=== PATIENT | female | born 1945 ===

== ENCOUNTER → 2016-08-30 | Day surgery (SDC) | payer OTHER ==
[~2016-08-30] MED LIST: BUPROPION XL300 M1 PO; DILTIA XT120 MG PO; HYDROCHLOROTHIA25 MG PO; LISINOPRIL10 MG PO; LUMIGAN2.5 ML OD; MOBIC PO; MULTI VITAMIN1 EACH PO; OCUVITE EYE +1 EACH PO; OMEPRAZOLE20 M1 PO; PRAVACHOL20 MG PO; SYNTHROID25 MCG PO; ZOLPIDEM TARTRAT5 MG PO; ZYRTEC10 M1 PO
--- NOTE | ~2016-08-30 | EKG ---
PATIENT: ROSELIA HERNANDEZ UNIT #: [id number] Ventricular Rate: 71 BPM Atrial Rate: 71 BPM P-R Interval: 212 ms QRS Duration: 76 ms Q-T Interval: 400 ms QTC Calculation(Bezet): 434 ms P [place]: 53 degrees Calculated R [place]: -3 degrees Calculated T [place]: 23 degrees Diagnosis Line: Sinus rhythm with sinus arrhythmia with 1st degree Diagnosis Line: A-V block Diagnosis Line: Otherwise normal ECG Diagnosis Line: No previous ECGs available Diagnosis Line: Confirmed by FAIZAN MENDEZ MD ([id number]) on Diagnosis Line: 08/30/2016 12:13:13 PM INTERPRETING MD: ROBIN
--- NOTE | ~2016-08-30 | OR ---
Unit #: [id number] #: [id number] Patient: ROSELIA HERNANDEZ [id number] [address] [address] [id number] O MR#: [id number] NAME: ROSELIA HERNANDEZ ROOM: Date of Procedure: 08/30/2016 Admission Date: 08/30/2016 Surgeon: Remi Bolanos M.D. : 1945 Attending Physician: Remi Bolanos M.D. Referring Physician: Remi Bolanos M.D. Primary Care Physician: Bimal Robertson M.D. OPERATIVE REPORT PREOPERATIVE DIAGNOSIS Bladder tumor, dome. POSTOPERATIVE DIAGNOSIS Bladder tumor, dome. PROCEDURES PERFORMED 1. Cystoscopy. 2. Bladder biopsy with fulguration. ANESTHESIA General. INDICATIONS FOR PROCEDURE Ms. Hernandez is a pleasant female with low-grade bladder cancer. She had 2 tumors on her dome on recent cystoscopy. The risks, benefits, alternatives including bleeding, infection, damage to adjacent structures, need for further surgery, bladder perforation, and all other risks were discussed with the patient. Informed consent was obtained. She wished to proceed. DESCRIPTION OF PROCEDURE The patient was taken to the operative suite and properly identified. After the application of satisfactory general anesthetic, the patient was placed in dorsal lithotomy position. Her genitalia were prepped and draped in usual sterile fashion. I introduced a rigid 22-[place] cystoscope. I performed panendoscopy. She had 2 papillary tumors along the dome. I switched to the rigid biopsy forceps. I completely removed each tumor and fulgurated the base. Hemostasis was excellent. Because these tumors were at the dome on a female, which typically have thin bladders, I elected to leave the catheter. I placed 20-[place] Álvarez catheter. Urine was clear at the end of the case. The patient tolerated the procedure well without complications. She was transported stable and extubated to PACU. PLAN We will have her follow up in about 4 to 5 days for Álvarez removal and pathology review. Dictated by... Remi Bolanos M.D. Unit #: [id number] #: [id number] Patient: ROSELIA HERNANDEZ MDP/modl TD: 08/30/2016 21:36 JOB #: [id number] OPERATIVE REPORT X Remi Bolanos MD PROCEDURE OPERATIVE NOTE
[2016-08-30 10:58] LABS: EOSINOPHIL# 0.2 X10e3 (0-0.7); HEMATOCRIT 35.9 % (35.0-45.0); HEMOGLOBIN 12.4 gm/dL (12.0-16.0); LYMPHOCYTE# 0.7 X10e3 (1.0-3.5); LYMPHOCYTE% 13.5 % (17.0-45.0); MEAN CELL VOLUME 93.9 FL (83-96); MEAN CORPUSCULAR HEMOGLOBIN 32.5 PG (28-34); MEAN CORPUSCULAR HGB CONC 34.6 g/dL (30-36); MEAN PLATELET VOLUME 7.9 FL (6.5-11.5); MONOCYTE# 0.7 X10e3 (0-1.0); NEUTROPHIL# 3.2 X10e3 (1.5-7.1); NEUTROPHIL% 66.5 % (40-75); PLATELET COUNT 322 X10e3 (140-420); RED BLOOD COUNT 3.82 X10e (3.90-5.30); RED CELL DISTRIBUTION WIDTH 12.1 % (11.0-15.5); WHITE BLOOD COUNT 4.8 X10e3 (4.0-10.5)
[2016-08-30 11:00] LABS: DIFF IND NO
[2016-08-30 11:26] LABS: CALCIUM SERUM 9.4 mg/dL (8.4-10.2); GLOM FILT RATE Estimated 58.3 mL/min (>60); POTASSIUM 4.1 mmol/L (3.5-5.1)
== END | disposition home or self-care (01) ==
LOC: CSUR 09:53
PROVIDERS: Urology
DX: C67.9 Malignant neoplasm of bladder, unspecified (principal); I10 Essential (primary) hypertension; E03.9 Hypothyroidism, unspecified; J43.9 Emphysema, unspecified; Z85.118 Personal history of other malignant neoplasm of bronchus and lung; Z87.891 Personal history of nicotine dependence; Z79.1 Long term (current) use of non-steroidal anti-inflammatories (NSAID); Z79.899 Other long term (current) drug therapy; Z90.89 Acquired absence of other organs; Z98.41 Cataract extraction status, right eye; Z98.42 Cataract extraction status, left eye; Z98.890 Other specified postprocedural states
CPT/HCPCS: 80048; 85025; 88305; 93005; J0690; J1100; J2250; J2370; J2405; J3010